=== PATIENT | female | born 1985 | race Caucasian/White ===

== ENCOUNTER 2022-09-09 20:31 | Emergency (ER) | payer BC, SELFPAY ==
[2022-09-09 20:40] VITALS: BP 145/78; PULSE 74; RESP 18; TEMP 36.8; O2SAT 99; BMI 41.1
--- NOTE | 2022-09-09 20:47 | ED.SKABFB ---
HPI - Skin/Abscess/Foreign Bdy General Chief complaint: Skin/Abscess/Foreign Body Stated complaint: abcess on right side of groin Time Seen by Provider: 09/09/22 20:38 History of Present Illness HPI narrative: Pt is a 36 year old woman who comes in with a labial abscess which has been present for the past 6 days. Pt was seen in Urgent Care and was cultured. Pt was started on Bactrim. Culture results not available. Pt has had no dysuria. No fevers or chills. No nausea or vomiting. Pt states the lestion which is on the right side has been draining puss. No other complaints. Pain is moderate and locatlised to the right side of the vagina. Related Data Home Medications Medication Instructions Recorded Confirmed omeprazole 40 mg capsule,delayed 40 mg PO DAILY 09/09/22 09/09/22 release sulfamethoxazole 800 1 tab PO BID 09/09/22 09/09/22 mg-trimethoprim 160 mg tablet Allergies Allergy/AdvReac Type Severity Reaction Status Date / Time albuterol AdvReac Mild Dizzy Verified 09/09/22 20:47 Review of Systems Status of ROS: Reports: 10 or more systems reviewed and unremarkable except as noted in History and below [facility] Medical History (Updated 09/09/22 @ 21:41 by Ted Singh MD) Anxiety ?F41.9 - Anxiety disorder, unspecified (ICD-10) Chronic GERD ?K21.9 - Gastro-esophageal reflux disease without esophagitis (ICD-10) Endometriosis ?N80.9 - Endometriosis, unspecified (ICD-10) Eosinophilic esophagitis ?K20.0 - Eosinophilic esophagitis (ICD-10) Idiopathic thrombocytopenic purpura (ITP) ?D69.3 - Immune thrombocytopenic purpura (ICD-10) Vertigo ?R42 - Dizziness and giddiness (ICD-10) Surgical History (Updated 09/09/22 @ 21:10 by Tobias Swift RN) History of appendectomy ?Z90.49 - Acquired absence of other specified parts of digestive tract (ICD-10) History of removal of ovarian cyst ?Z98.890 - Other specified postprocedural states (ICD-10) ?Z87.42 - Personal history of other diseases of the female genital tract (ICD-10) Social History Smoking Status: Never smoker Second hand tobacco smoke exposure: No How often do you have a drink containing alcohol: never How often do you have six or more drinks on one occasion: Never AUDIT-C Alcohol total score: 0 Non-prescribed substance use: denies use Exam Narrative: Exam Narrative: EXAM GENERAL: Patient appears comfortable and well. EYES: No scleral icterus. LYMPH: No supraclavicular or cervical lymphadenopathy. SKIN: Visible skin seen during exam normal or with benign process only. EXT: No dependent lower extremity pedal edema. HEART: Regular rate and rhythm with no murmurs, rubs, or gallops. LUNGS: Clear to auscultation bilaterally with no crackles or wheezes. ABD: Soft, non tender, non distended. PSYCH: Good eye contact, speech is not pressured. Const: Vital Signs, click to edit/add: Vital Signs - 24 hr 09/09/22 20:40 Temperature 98.2 F Pulse Rate [Right Pulse Oximeter] 74 Respiratory Rate 18 Blood Pressure [Ri ght Upper Arm] 145/78 H Pulse Oximetry 99 Oxygen Delivery Me thod Room Air Course Course Hospital Course: Pt seen and examined. Abscess is actually in the right groin lateral to the vagina. Exam performed with female nurse present. Ultrasound ordered. Reevaluation(s) Reevaluation #1: Ultrasound showed no fluid collection only swelling Time: 21:37 Vital Signs Vital signs: Initial Vital Signs Temperature 98.2 F 09/09/22 20:40 Temperature Source Temporal Artery Scan 09/09/22 20:40 Pulse Rate 74 09/09/22 20:40 Respiratory Rate 18 09/09/22 20:40 Blood Pressure 145/78 H 09/09/22 20:40 Blood Pressure Mean 100 09/09/22 20:40 Blood Pressure Position Sitting 09/09/22 20:40 Pulse Oximetry 99 09/09/22 20:40 Oxygen Delivery Method Room Air 09/09/22 20:40 Vital Signs Temperature 98.2 F 09/09/22 20:40 Pulse Rate 74 09/09/22 20:40 Respiratory Rate 18 09/09/22 20:40 Blood Pressure 145/78 H 09/09/22 20:40 Pulse Oximetry 99 09/09/22 20:40 Oxygen Delivery Method Room Air 09/09/22 20:40 Temperature 98.2 F 09/09/22 20:40 Pulse Rate 74 09/09/22 20:40 Respiratory Rate 18 09/09/22 20:40 Blood Pressure 145/78 H 09/09/22 20:40 Pulse Oximetry 99 09/09/22 20:40 Oxygen Delivery Method Room Air 09/09/22 20:40 MDM - Skin/Abscess/Foreign Bdy MDM Narrative Medical decision making narrative: Pt is a 36 year old woman who comes in with induration in the right groin. Pt had been seen by Urgent Care previously and cultured. Pt is on Bactrim. Ultrasound shows no drainable fluid. Pt shows no signs of systemic infection. Pt will continue Bactrim with symptomatic treatment and follow up with PCP in 2 days. Differential Diagnosis Differential diagnosis: Likely abscess of skin or subcutaneous tissue, cellulitis and contact dermatitis Discharge Plan Discharge Clinical Impression: Cellulitis Patient Disposition: Home, Self-Care Condition: Stable Instructions: Cellulitis (ED) Additional Instructions: Continue current treatment Follow up with PCP Monday Activity Level: No Restrictions Discharge Diet: Regular Prescriptions: No Action sulfamethoxazole-trimethoprim 800-160 mg tablet 1 tab PO BID omeprazole 40 mg capsule,delayed release(DR/EC) 40 mg PO DAILY Stand Alone Forms: [employer] Info Instructions
== END 2022-09-09 21:48 | disposition home or self-care (01) ==
PROVIDERS: Emergency Provider Internal Medicine; PCP Family Medicine
DX: L03.314 Cellulitis of groin (principal)
CPT/HCPCS: 99283

== ENCOUNTER 2023-02-17 07:25 | Emergency (ER) | payer BC, SELFPAY ==
[2023-02-17 07:32] VITALS: BP 161/101; PULSE 87; RESP 18; TEMP 36.3; O2SAT 98; BMI 39.5
--- NOTE | 2023-02-17 07:57 | ED.GENADULT ---
HPI - General Adult General Date Seen: 02/17/23 Chief complaint: Skin/Abscess/Foreign Body Stated complaint: rash Time Seen by Provider: 02/17/23 07:55 Source: patient Mode of arrival: ambulatory Limitations: no limitations Related Data Home Medications Medication Instructions Recorded Confirmed omeprazole 40 mg capsule,delayed 40 mg PO DAILY 09/09/22 02/17/23 release Previous Rx's Medication Instructions Recorded cephalexin 500 mg capsule 500 mg PO TID #15 caps 02/17/23 prednisone 50 mg tablet 50 mg PO DAILY #5 tabs 02/17/23 Allergies Allergy/AdvReac Type Severity Reaction Status Date / Time albuterol AdvReac Mild Dizzy Verified 09/09/22 20:47 PFSH PFS Medical History (Updated 02/17/23 @ 07:57 by Gutierrez Alberto MD) Vertigo ?R42 - Dizziness and giddiness (ICD-10) Idiopathic thrombocytopenic purpura (ITP) ?D69.3 - Immune thrombocytopenic purpura (ICD-10) Eosinophilic esophagitis ?K20.0 - Eosinophilic esophagitis (ICD-10) Endometriosis ?N80.9 - Endometriosis, unspecified (ICD-10) Anxiety ?F41.9 - Anxiety disorder, unspecified (ICD-10) Chronic GERD ?K21.9 - Gastro-esophageal reflux disease without esophagitis (ICD-10) Surgical History (Updated 09/09/22 @ 21:10 by Tobias Swift RN) History of removal of ovarian cyst ?Z98.890 - Other specified postprocedural states (ICD-10) ?Z87.42 - Personal history of other diseases of the female genital tract (ICD-10) History of appendectomy ?Z90.49 - Acquired absence of other specified parts of digestive tract (ICD-10) Social History Smoking Status: Never smoker Second hand tobacco smoke exposure: No How often do you have a drink containing alcohol: never How often do you have six or more drinks on one occasion: Never AUDIT-C Alcohol total score: 0 Non-prescribed substance use: denies use Exam Const: Vital Signs, click to edit/add: Vital Signs - 24 hr 02/17/23 07:32 Temperature 97.3 F L Pulse Rate [Pulse Oximeter] 87 Respiratory Rate 18 Blood Pressure [Ri ght Upper Arm] 161/101 H Pulse Oximetry 98 Oxygen Delivery Me thod Room Air Course Vital Signs Vital signs: Initial Vital Signs Temperature 97.3 F L 02/17/23 07:32 Temperature Source Temporal Artery Scan 02/17/23 07:32 Pulse Rate 87 02/17/23 07:32 Respiratory Rate 18 02/17/23 07:32 Blood Pressure 161/101 H 02/17/23 07:32 Blood Pressure Mean 121 H 02/17/23 07:32 Blood Pressure Position Sitting 02/17/23 07:32 Pulse Oximetry 98 02/17/23 07:32 Oxygen Delivery Method Room Air 02/17/23 07:32 Vital Signs Temperature 97.3 F L 02/17/23 07:32 Pulse Rate 87 02/17/23 07:32 Respiratory Rate 18 02/17/23 07:32 Blood Pressure 161/101 H 02/17/23 07:32 Pulse Oximetry 98 02/17/23 07:32 Oxygen Delivery Method Room Air 02/17/23 07:32 Temperature 97.3 F L 02/17/23 07:32 Pulse Rate 87 02/17/23 07:32 Respiratory Rate 18 02/17/23 07:32 Blood Pressure 161/101 H 02/17/23 07:32 Pulse Oximetry 98 02/17/23 07:32 Oxygen Delivery Method Room Air 02/17/23 07:32 Discharge Plan Discharge Clinical Impression: Insect bite of eyebrow with local reaction Patient Disposition: Home, Self-Care Condition: Stable Additional Instructions: Benadryl 50 mg daily for five days. Keflex 500 mg t.i.d. x5 days. Benadryl as needed. Ice. Follow-up if worsening or not improving. Prescriptions: New prednisone 50 mg tablet 50 mg PO DAILY Qty: 5 0RF cephalexin 500 mg capsule 500 mg PO TID Qty: 15 0RF No Action omeprazole 40 mg capsule,delayed release(DR/EC) 40 mg PO DAILY Follow Up/Referrals: Emilie Danielson MD [Staff Physician] - Stand Alone Forms: [facility] Info Instructions
--- NOTE | 2023-04-07 06:30 | ED.SKABFB ---
HPI - Skin/Abscess/Foreign Bdy General Date Seen: 04/07/23 Chief complaint: Skin/Abscess/Foreign Body Stated complaint: rash Time Seen by Provider: 02/17/23 07:55 Source: patient Mode of arrival: ambulatory Limitations: no limitations History of Present Illness HPI narrative: 37-year-old female with insect bite above her right eye that is now causing swelling and redness down into her right cheek. No fevers or chills. No lip or tongue swelling. She still able open and close her eye. No purulent drainage from the eye. Related Data Home Medications Medication Instructions Recorded Confirmed omeprazole 40 mg capsule,delayed 40 mg PO DAILY 09/09/22 02/17/23 release Previous Rx's Medication Instructions Recorded cephalexin 500 mg capsule 500 mg PO TID #15 caps 02/17/23 prednisone 50 mg tablet 50 mg PO DAILY #5 tabs 02/17/23 Allergies Allergy/AdvReac Type Severity Reaction Status Date / Time albuterol AdvReac Mild Dizzy Verified 09/09/22 20:47 Review of Systems Narrative: Review of systems is outlined above otherwise noted to be negative. PFSH PFSH Medical History (Updated 03/04/23 @ 00:00 by Coleen Izaguirre) Vertigo ?R42 - Dizziness and giddiness (ICD-10) Idiopathic thrombocytopenic purpura (ITP) ?D69.3 - Immune thrombocytopenic purpura (ICD-10) Eosinophilic esophagitis ?K20.0 - Eosinophilic esophagitis (ICD-10) Endometriosis ?N80.9 - Endometriosis, unspecified (ICD-10) Anxiety ?F41.9 - Anxiety disorder, unspecified (ICD-10) Chronic GERD ?K21.9 - Gastro-esophageal reflux disease without esophagitis (ICD-10) Surgical History (Updated 09/09/22 @ 21:10 by Tobias Swift RN) History of removal of ovarian cyst ?Z98.890 - Other specified postprocedural states (ICD-10) ?Z87.42 - Personal history of other diseases of the female genital tract (ICD-10) History of appendectomy ?Z90.49 - Acquired absence of other specified parts of digestive tract (ICD-10) Social History Smoking Status: Never smoker Second hand tobacco smoke exposure: No How often do you have a drink containing alcohol: never How often do you have six or more drinks on one occasion: Never AUDIT-C Alcohol total score: 0 Non-prescribed substance use: denies use Exam Narrative: Exam Narrative: Vitals noted. HEENT: Conjunctiva clear. Tympanic membranes are pearly white bilaterally. Posterior pharynx is clear without erythema or exudate. Neck is supple without adenopathy. Lungs: Clear to auscultation in all contreras. No wheezes, rales, rhonchi. Heart: Regular rate and rhythm without murmur. Skin: No abnormalities noted of the exposed skin. There is some redness and swelling below the eye. No induration. Neurologic: Awake, alert, fully oriented. Neurologic exam is nonfocal. Course Course ED Course: Patient seen and examined. She is having a local reaction to the staying. We will cover with an antibiotic just in case there is a secondary bacterial infection. Primary treatment with Benadryl and prednisone. Vital Signs Vital signs: Initial Vital Signs Temperature 97.3 F L 02/17/23 07:32 Temperature Source Temporal Artery Scan 02/17/23 07:32 Pulse Rate 87 02/17/23 07:32 Respiratory Rate 18 02/17/23 07:32 Blood Pressure 161/101 H 02/17/23 07:32 Blood Pressure Mean 121 H 02/17/23 07:32 Blood Pressure Position Sitting 02/17/23 07:32 Pulse Oximetry 98 02/17/23 07:32 Oxygen Delivery Method Room Air 02/17/23 07:32 Vital Signs Temperature 97.3 F L 02/17/23 07:32 Pulse Rate 87 02/17/23 07:32 Respiratory Rate 18 02/17/23 07:32 Blood Pressure 161/101 H 02/17/23 07:32 Pulse Oximetry 98 02/17/23 07:32 Oxygen Delivery Method Room Air 02/17/23 07:32 Temperature 97.3 F L 02/17/23 07:32 Pulse Rate 87 02/17/23 07:32 Respiratory Rate 18 02/17/23 07:32 Blood Pressure 161/101 H 02/17/23 07:32 Pulse Oximetry 98 02/17/23 07:32 Oxygen Delivery Method Room Air 02/17/23 07:32 Discharge Plan Discharge Clinical Impression: Insect bite of eyebrow with local reaction Patient Disposition: Home, Self-Care Condition: Stable Additional Instructions: Benadryl 50 mg daily for five days. Keflex 500 mg t.i.d. x5 days. Benadryl as needed. Ice. Follow-up if worsening or not improving. Prescriptions: New prednisone 50 mg tablet 50 mg PO DAILY Qty: 5 0RF cephalexin 500 mg capsule 500 mg PO TID Qty: 15 0RF No Action omeprazole 40 mg capsule,delayed release(DR/EC) 40 mg PO DAILY Follow Up/Referrals: Emilie Danielson MD [Staff Physician] - Stand Alone Forms: [employer] Info Instructions
== END 2023-02-17 08:12 | disposition home or self-care (01) ==
LOC: ED 08:07
PROVIDERS: Emergency Provider Family Medicine
DX: T63.481A Toxic effect of venom of other arthropod, accidental (unintentional), initial encounter (principal)
CPT/HCPCS: 99281; 99282; 99283

== ENCOUNTER 2023-07-22 14:50 | Emergency (ER) | payer BC, SELFPAY ==
[2023-07-22] VITALS (16 sets, daily range): BP systolic 160–191; BP diastolic 90–111; PULSE 73–90; RESP 16; TEMP 37.1–37.9; O2SAT 95–100; BMI 40.3
--- NOTE | 2023-07-22 15:18 | ED_ITS ---
HPI - General Adult General Date Seen: 07/22/23 Chief complaint: Headache/Migraine Stated complaint: Migraine, vomiting Time Seen by Provider: 07/22/23 15:03 History of Present Illness HPI narrative: 37 yo F with h/o ITP, vertigo, eosinophilic esophagitis, endometreosis, GERD, and also frequent cervicogenic and tension-type headaches. She presents to the ER today with her for evaluation of headache that began this morning. She recalls that she has had a lot of stress and pain in her neck lately at work. She actually saw her chiropractor earlier this week on Monday and had a manipulation with improvement. Headaches were doing better for the past few days. She woke up this morning she had some stiffness and pain affecting both sides on the back of her neck. No other symptoms. Later on this morning the pain was radiating up into her head and now giving her a throbbing headache behind both temples. The headache is associated with photophobia, nausea, and and a couple of episodes of nonbilious, nonbloody vomiting. No other symptoms. No confusion. No blurry vision. No focal numbness or tingling. No slurred speech. She has not had any recent head trauma. No known exposure to carbon monoxide her is with her and is not having any symptoms. She does have a history migraines and this headache feels similar in location to her previous migraines. She does not recall that the other migraines were associated with neck pain at the onset. She was noted to have a temp 100.2? at triage but has not had any fever or chills at home. She now feels a bit flushed. No other infectious type symptoms such as cough, stuffy nose, sore throat. No urinary trouble. Related Data Home Medications Medication Instructions Recorded Confirmed omeprazole 40 mg capsule,delayed 40 mg PO DAILY 09/09/22 02/17/23 release Previous Rx's Medication Instructions Recorded cephalexin 500 mg capsule 500 mg PO TID #15 caps 02/17/23 prednisone 50 mg tablet 50 mg PO DAILY #5 tabs 02/17/23 Allergies Allergy/AdvReac Type Severity Reaction Status Date / Time albuterol AdvReac Mild Dizzy Verified 07/22/23 15:14 [facility] Medical History (Updated 07/22/23 @ 18:18 by Brooks Santos MD) Vertigo ?R42 - Dizziness and giddiness (ICD-10) Idiopathic thrombocytopenic purpura (ITP) ?D69.3 - Immune thrombocytopenic purpura (ICD-10) Eosinophilic esophagitis ?K20.0 - Eosinophilic esophagitis (ICD-10) Endometriosis ?N80.9 - Endometriosis, unspecified (ICD-10) Anxiety ?F41.9 - Anxiety disorder, unspecified (ICD-10) Chronic GERD ?K21.9 - Gastro-esophageal reflux disease without esophagitis (ICD-10) Surgical History (Updated 09/09/22 @ 21:10 by Tobias Swift RN) History of removal of ovarian cyst ?Z98.890 - Other specified postprocedural states (ICD-10) ?Z87.42 - Personal history of other diseases of the female genital tract (ICD-10) History of appendectomy ?Z90.49 - Acquired absence of other specified parts of digestive tract (ICD- 10) Social History Smoking Status: Never smoker Second hand tobacco smoke exposure: No How often do you have a drink containing alcohol: never How often do you have six or more drinks on one occasion: Never AUDIT-C Alcohol total score: 0 Non-prescribed substance use: denies use Exam Narrative: Exam Narrative: Constitutional: Appears well-developed and well-nourished. Alert. Conversant. Uncomfortable and photophobic. Prefers to have the lights off, but overall is conversant and Non toxic. HENT: Head: Atraumatic. No depressed skull fracture, Raccoon Eyes, Mccarty's sign, or hemotympanum. Face normal. TMs normal. Has placed a a cold washcloth on her forehead Nose: Nose normal. Mouth/Throat: Oral mucosa is clear and moist. no trismus. Pharynx normal. Tonsils symmetric. No tonsillar enlargement, erythema, or exudate. Eyes: Conjunctivae normal. EOM normal. Pupils equal, round, and reactive to light. No scleral icterus. Neck: Normal range of motion. Neck supple. No tracheal deviation present. Cardiovascular: Normal rate, regular rhythm. No gallop. No friction rub. No murmur heard. Symmetric radial artery pulses Pulmonary/Chest: Effort normal. No stridor. No respiratory distress. No wheezes. No rales. No rhonchi . No tenderness. Abdominal: Soft. No distension. No mass. No tenderness. No rebound. No guarding. Musculoskeletal: RUE: Normal range of motion. No tenderness. No deformity LUE: Normal range of motion. No tenderness. No deformity RLE: Normal range of motion. No edema. No tenderness. No deformity LLE: Normal range of motion. No edema. No tenderness. No deformity Lymph: No cervical adenopathy. Neurological: Mental status normal. Attention normal. Alert and oriented x3. GCS 15. Memory normal. Speech fluent. Cognition normal. Cranial Nerves intact II-XII except I did not formally test gag or visual acuity. EOMI. Palate elevates symmetrically and tongue protrudes in the midline. Strength: 5/5 trapezius on the right and left 5/5 deltoid on the right and left 5/5 biceps on the right and left 5/5 triceps on the right and left 5/5 winter intern on the right and left 5/5 thumb opposition on the right and le ft 5/5 finger abduction on the right and le ft 5/5 hip flexors (L3) on the right and le ft 5/5 quadriceps (L4) on the right and lef t 5/5 tibialis anterior on the right and l eft 5/5 EHL (L5) on the right and left 5/5 gastrocnemius (S1) on the right and left 5/5 hamstring on the right and left Sensation intact to light touch in both upper extremities (C4-T1) Sensation intact to light touch in Both lower extremities (L4-S1). Finger to nose and coordination normal. Skin: Skin is warm and dry. No rash noted. No pallor. Normal capillary refill. Psychiatric: Normal mood. Normal affect. Const: Vital Signs, click to edit/add: Vital Signs - 24 hr 07/22/23 15:07 07/22/23 15:17 07/22/23 15:30 Temperature 100.2 F H Pulse Rate 88 83 Pulse Rate [Pulse Oximeter] 90 Respiratory Rate 16 Blood Pressure Blood Pressure [Ri ght Upper Arm] 189/111 H Pulse Oximetry 95 100 99 Oxygen Delivery Me thod Room Air 07/22/23 15:32 07/22/23 15:45 07/22/23 16:38 Temperature Pulse Rate 80 78 82 Pulse Rate [Pulse Oximeter] Respiratory Rate Blood Pressure 181/108 H Blood Pressure [Ri ght Upper Arm] Pulse Oximetry 100 100 99 Oxygen Delivery Me thod 07/22/23 16:45 07/22/23 17:00 07/22/23 17:15 Temperature Pulse Rate 77 73 84 Pulse Rate [Pulse Oximeter] Respiratory Rate Blood Pressure Blood Pressure [Ri ght Upper Arm] Pulse Oximetry 98 96 100 Oxygen Delivery Me thod 07/22/23 17:30 07/22/23 17:45 07/22/23 17:48 Temperature Pulse Rate 77 86 86 Pulse Rate [Pulse Oximeter] Respiratory Rate Blood Pressure 191/111 H Blood Pressure [Ri ght Upper Arm] Pulse Oximetry 100 99 100 Oxygen Delivery Ny thod 07/22/23 17:49 07/22/23 18:00 07/22/23 18:15 Temperature 98.7 F Pulse Rate 88 87 Pulse Rate [Pulse Oximeter] Respiratory Rate Blood Pressure Blood Pressure [Ri ght Upper Arm] Pulse Oximetry 100 100 Oxygen Delivery Me thod 07/22/23 18:32 Temperature Pulse Rate Pulse Rate [Pulse Oximeter] Respiratory Rate Blood Pressure Blood Pressure [Ri ght Upper Arm] 160/90 H Pulse Oximetry Oxygen Delivery Me thod Course Course ED Course: Recheck-labs reassuring. White count normal. Headache down to 10/22/2009 but just got her meds. Reevaluation(s) Reevaluation #1: Recheck-headache improving down to maybe 10/26. Reevaluation #2: Recheck-headache improving. Able turn the lights on now. Much more conversant. Feeling better. Blood pressure still elevated. I had the nurses recheck it because the automatic cuff was reading 190 systolic. A nurse recheck it was 160/100. Temperature down to normal, however that is not entire reassuring to me because she received Toradol which would be an antipyretic. Clinically, she looks good, headache is improving, neck is not stiff, and mental status is normal.. Vital Signs Vital signs: Initial Vital Signs Temperature 100.2 F H 07/22/23 15:07 Temperature Source Temporal Artery Scan 07/22/23 15:07 Pulse Rate 90 07/22/23 15:07 Respiratory Rate 16 07/22/23 15:07 Blood Pressure 189/111 H 07/22/23 15:07 Blood Pressure Mean 137 H 07/22/23 15:07 Blood Pressure Position Sitting 07/22/23 15:07 Pulse Oximetry 95 07/22/23 15:07 Oxygen Delivery Method Room Air 07/22/23 15:07 Vital Signs Temperature 100.2 F H 07/22/23 15:07 Pulse Rate 90 07/22/23 15:07 Respiratory Rate 16 07/22/23 15:07 Blood Pressure 189/111 H 07/22/23 15:07 Pulse Oximetry 95 07/22/23 15:07 Oxygen Delivery Method Room Air 07/22/23 15:07 Temperature 98.7 F 07/22/23 17:49 Pulse Rate 87 07/22/23 18:15 Respiratory Rate 16 07/22/23 15:07 Blood Pressure 160/90 H 07/22/23 18:32 Pulse Oximetry 100 07/22/23 18:15 Oxygen Delivery Method Room Air 07/22/23 15:07 Medications Administered Medications: Discontinued Medications Generic Name Dose Route Start Last Admin Trade Name Freq PRN Reason Stop Dose Admin Diphenhydramine HCl 12.5 mg 07/22/23 15:35 07/22/23 16:20 Diphenhydramine 50 Mg/Ml Inj IVP 07/22/23 15:36 12.5 mg ONCE ONE Administration Sodium Chloride 1,000 mls @ 1,000 mls/hr 07/22/23 15:45 07/22/23 17:32 0.9 % Sodium Chloride 1000 Ml IV 07/22/23 16:44 Infused .Q1H JOVANA Infusion Ketorolac Tromethamine 15 mg 07/22/23 15:35 07/22/23 16:21 Ketorolac 15 Mg/Ml Inj IVP 07/22/23 15:36 15 mg ONCE ONE Administration Metoclopramide HCl 10 mg 07/22/23 15:35 07/22/23 16:22 Metoclopramide Hcl 5 Mg/Ml Inj IVP 07/22/23 15:36 10 mg ONCE ONE Administration Medical Decision Making MDM Narrative Medical decision making narrative: Ths patient presents with a headache. A broad differential diagnosis was considered including tension, migraine, analgesic rebound, occipital neuralgia, etc. she does have a history of migraines when she was younger and she feels in many ways that today's headache is reminiscent of those migraines. Other less common but serious causes considered included meningitis, encephalitis, subarachnoid bleed, stroke, tumor, etc. in particular differential would include meningitis since she had a temperature of 100.2? and her headache is associated with some neck pain (but no stiffness).. Differential for fever include viral infections. Influenza and COVID swab is negative. Labs and white count are reassuring. Discussed with the patient and her that the only way to definitively rule out meningitis would be lumbar puncture. At this point though given clinically improvement, the patient and I agree that the risk in discomfort of LP would outweigh the on likely benefit of detecting bacterial meningitis. However, return precautions reviewed. Differential would also include neck pathology such as vertebral dissection since she had has been having a lot of neck pain lately and recently underwent chiropractic manipulation (5 days ago on Monday). No other focal deficits or vertigo to suggest acute stroke from vertebral dissection. Using 6 shared decision making we decided to hold off on CT imaging or CTA for now. Headache was not abrupt in onset so unlikely to represent aneurysmal subarachnoid hemorrhage. Please initial blood pressure was elevated. Suspect this was probably pain response. At this point no evidence for hypertensive encephalopathy , stroke, or other acute hypertensive emergency. Patients questions were answered and they feel improved after above interventions in ED. Supportive outpatient management is therefore indicated. Headache precautions given for home. If she needs to return to the ER would pursue advanced imaging with CT and CTA and/or lumbar puncture if still febrile. Lab Data Labs: Lab Results 07/22/23 07/22/23 Range/Units 16:06 16:40 WBC 7.80 (4.50-11.00) K/uL RBC 4.97 (4.00-5.20) m/uL Hgb 14.1 (12.0-16.0) gm/dL Hct 41.5 (33.0-51.0) % MCV 84 (80-100) fL MCH 28 (26-34) pg MCHC 34 (32-36) gm/dL RDW Coeff of Aric 12.4 (11.5-15.5) % Plt Count 261 (140-440) K/uL Neut % (Auto) 65.8 (42.0-72.0) % Lymph % (Auto) 27.6 (20-44) % [place] % (Auto) 4.9 (0.0-11.0) % Eos % (Auto) 1.2 (0.0-7.0) % Baso % (Auto) 0.1 (0.0-3.0) % Neut # (Auto) 5.14 (1.7-7.0) K/uL Lymph # (Auto) 2.15 (0.90-2.90) K/uL [place] # (Auto) 0.40 (0.00-0.90) K/UL Eos # (Auto) 0.09 (0.00-0.50) K/uL Baso # (Auto) 0.01 (0.00-0.30) K/uL Abs Immat Gran (auto) 0.03 (0.00-0.30) K/uL Imm/Tot Granulo (auto) 0.4 % Sodium 139 (135-149) mmol/L Potassium 3.9 (3.6-5.1) mmol/L Chloride 106 (96-114) mmol/L Carbon Dioxide 22 (20-32) mmol/L Anion Gap 11 (7-15) mEq/L BUN 12 (5-24) mg/dL Creatinine 0.5 (0.5-1.5) mg/dL Estimated Creat Clear 155.40 Estimated GFR 124 ml/min Glucose 90 (60-115) mg/dL Calcium 9.4 (8.4-10.6) mg/dL HCG, Qual Negative (Negative) SARS-CoV-2 (PCR) Negative SARS-CoV-2 (Negative) Influenza Type A (PCR) Negative PCR FLU A (Negative) Influenza Type B (PCR) Negative PCR FLU B (Negative) RSV (PCR) Negative PCR RSV (Negative) Discharge Plan Discharge Clinical Impression: Headache Patient Disposition: Home, Self-Care Condition: Stable Instructions: Acute Headache (DC) Additional Instructions: As we discussed, please return to the ER right away if you have any worsening headache, confusion, vomiting, worsening neck pain or stiffness, or if you developed another fever. If your headache is not completely improved within 24 hours, please return to the ER or see your doctor for a recheck Prescriptions: No Action omeprazole 40 mg capsule,delayed release(DR/EC) 40 mg PO DAILY prednisone 50 mg tablet 50 mg PO DAILY Qty: 5 0RF cephalexin 500 mg capsule 500 mg PO TID Qty: 15 0RF Follow Up/Referrals: Provider,Not a Local [Referring] - Stand Alone Forms: [employer] Info Instructions
[2023-07-22 16:11] LABS: Basophils Absolute Auto 0.01 K/uL (0.00-0.30); Basophils Percent Auto 0.1 % (0.0-3.0); Eosinophils Absolute Auto 0.09 K/uL (0.00-0.50); Eosinophils Percent Auto 1.2 % (0.0-7.0); Hematocrit 41.5 % (33.0-51.0); Hemoglobin* 14.1 gm/dL (12.0-16.0); Immature Granulocytes Abs Auto 0.03 K/uL (0.00-0.30); Immature Granulocytes Pct Auto 0.4 %; Lymphocytes Absolute Auto 2.15 K/uL (0.90-2.90); Lymphocytes Percent Auto 27.6 % (20-44); Mean Corpuscular HGB Conc 34 gm/dL (32-36); Mean Corpuscular Hemoglobin 28 pg (26-34); Mean Corpuscular Volume 84 fL (80-100); Monocytes Percent Auto 4.9 % (0.0-11.0); Neutrophils Absolute Auto 5.14 K/uL (1.7-7.0); Neutrophils Percent Auto 65.8 % (42.0-72.0); Platelet Count* 261 K/uL (140-440); RDW Coefficient of Variation % 12.4 % (11.5-15.5); Red Blood Count 4.97 m/uL (4.00-5.20)
[2023-07-22] MEDS: 0.9 % SODIUM CHLORIDE 1000 ml 1,000 ML IV (16:16)
[2023-07-22 16:19] LABS: Slide Review Reflex No
[2023-07-22] MEDS: diphenhydrAMINE 50 MG/ML inj 12.5 MG IVP (16:20)
[2023-07-22] MEDS: KETOROLAC 15 MG/ML inj IVP (16:21)
[2023-07-22] MEDS: METOCLOPRAMIDE HCL 5 MG/ML INJ 10 MG IVP (16:22)
[2023-07-22 16:25] LABS: Chloride* 106 mmol/L (96-114); Sodium* 139 mmol/L (135-149)
--- OUTSIDE RECORDS SUMMARY | 2023-07-22 16:25 | XMS_ITS | Clinical Summary ---
Author Name Unknown Organization [facility] Address [place], [place] [address] Care Team Providers Care Garment Sewing Machine Operator Name Role Phone Miguel Angel Olson MD Primary Care Provider U eriailbriana Allergies Active Allergy Reactions Criticality Noted Date Comments Albuterol Arrhythmia,Headache 10/14/2013 Milk Cough 02/13/2014 Medications Medication Sig Dispensed Refills Start Date End Date Status Biotin 1 mg tablet Take by mouth. 0 02/13/2014 Ac tive calcium-vitamin D3-vitamin K, 500 mg-100 units-40 mcg, (VIACTIV) chewable Take 1 tablet by mouth once daily. 0 02/13/2014 Active multivitamins-calcium -iron-minerals (WOMEN'S DAILY MULTIVITAMIN) 18-0.4 mg tab tablet Take 1 tablet by mouth once daily. 0 01/19/2015 Active glucosamine-chondroit in, 500-400 mg, (COSAMIN DS 500/400) 500-400 mg cap Take 1 capsule by mouth 3 times daily. 0 05/02/2015 Active Lactobacillus acidophilus (Probiotic) 10 billion cell cap Take by mouth. 0 12/10/2021 Acti ve omeprazole (PRILOSEC) 40 mg Delayed-Release capsuleIndications:Eo sinophilic esophagitis Take 1 Capsule (40 mg) by mouth once daily. Take 30-60 minutes before a meal/food once a day. 90 Capsule 3 01/03/2022 Active ascorbic acid CR (VITAMIN C) 500 mg Extended-Release tablet 0 Active Active Problems Problem Noted Date Diagnosed Date Pap smear for cervical cancer screening 12/18/19 Overview: 12/2021: NIL/HPV neg. Plan: Pap and HPV in 5 years. Eosinophilic esophagitis 09/08/2021 Overview: EGD 08/2021 1 cm HH, mild eosinophilic esophagitis, try omeprazole Vertigo 10/04/2019 Obesity, Class II, BMI 35-39.9 04/11/2017 Anxiety state, unspecified 12/14/2010 Family history of hemochromatosis 12/02/2008 Overview: Dad Endometriosis of pelvis 11/11/2008 Overview: Dx 2000 Physiological ovarian cysts 11/11/2008 Idiopathic thrombocytopenic purpura (ITP) 2008 Overview: 2001 Resolved Problems Problem Noted Date Diagnosed Date Resolved Date Idiopathic thrombocytopenic purpura (ITP) 11/11/2008 08/09/2011 Overview: Dx 2001 Immunizations Name Administration Dates Next Due COVID-19 vaccine (Chantelle-J&J) PF, MDV Covid-19 Vaccine (Novavax) Pf, MDV 05/07/2022 DTP 08/18/1987, 7,05/19/1986,02/17 Hepatitis B (Adult) 03/06/2006, 6,09/26/2005,07/20 Hepatitis B (Peds) 01/17/2006,08/17/2005 Inactivated Polio Vaccine 09/17/1997 Influenza Virus, Unspecified 03/29/2019 Influenza, IIV3 (Age >=3 years) 03/19/2017,03/19 Influenza, IIV4 06/13/2022,05/02/2015 Influenza, IIV4 (=>6mos) MDV 03/29/2020,04/01/20 19 MMR 01/17/1991,03/19/1987 Meningococcal Vaccine (Menomune) 11/17/2005,09/17 Oral Polio Vaccine 08/18/1987, 7,06/19/1986,02/17 Td (Age >=7 Years) 11/17/2005,03/19/1997 Td, Preservative Free (age >= 7 Years) 7 Tdap 03/06/2006 Family History Medical History Relation Name Comments Good Health Brother 2 younger broth ers Coronary artery disease Father sten t x1 Other Father hemochromatosis b 1962 Cancer-colon Maternal Aunt Psychiatric illness Maternal Grandfather dementia - pancreatic CA Cancer Maternal Grandmother ovarian Good Health Mother b 1961 Hyperlipidemia Other 1 dad's side - all of the paternal great uncles had premature CADz Diabetes Other 2 MGGM Heart Disease Paternal Grandfather o f MS at 69 Relation Name Status Comments Brother Father Maternal Aunt Maternal Grandfather Maternal Grandmother Mother Other 1 Other 2 Paternal Grandfather Social History Tobacco Use Types Packs/Day Years Used Date Smoking Tobacco: Never Smokeless Tobacco: Never Tobacco Cessation:Counseling Given: Yes Alcohol Use Standard Drinks/Week Comments Yes 0.8 (1 standard drink = 0.6 oz p ure alcohol) PHQ-2 Answer Date Recorded PHQ-2 TOTAL SCORE 0 10/04/2019 Social Connections Answer Date Recorded Frequency of Communication with Friends and Fami ly 0 09/07/2022 Financial Resource Strain Answer Date R ecorded Difficulty of Paying Living Expenses 3 09/07/2022 Difficulty of Paying Living Expenses Not on file 09/07/2022 Food Insecurity Answer Date Recorded Worried About Running Out of Food in the Last Ye ar 1 09/07/2022 Transportation Needs Answer Date Record ed Lack of Transportation (Medical) 1 09/07/2022 Housing Stability Answer Date Recorded Unable to Pay for Housing in the Last Year 1 09/07/2022 Sex and Gender Information Value Date Recorded Sex Assigned at Not on file Gender Identity Not on file Sexual Orientation Not on file Obstetrics History Para Term AB IAB SAB Ectopic Multiple Livin g Live Births 0 0 0 0 0 0 0 0 0 0 Last Filed Vital Signs Vital Sign Reading Time Taken Comments Blood Pressure 149/99 09/12/2022 2:53 PM CDT Pulse 90 09/12/2022 2:50 PM CDT Temperature 37.2 ??C (98.9 ??F) 09/07/2022 2:12 PM CD T Respiratory Rate 18 09/07/2022 2:12 PM CDT Oxygen Saturation 98% 09/12/2022 2:50 PM CDT Inhaled Oxygen Concentration - - Weight 123.8 kg (273 lb) 09/12/2022 2:50 PM CDT Height 174 cm (5' 8.5) 01/03/2022 8:10 AM CDT Body Mass Index 40.9 01/03/2022 8:10 AM CDT Plan of Treatment Health Maintenance Due Date Last Done Comments HIV for age 15-65 2000 Depression screening for age 12+ 10/03/2020 10/04/2019, 09/10/2018, 01/27/2017, Additional history exists BMI (ht and wt on same day) for age 18+ 01/03/2023 01/03/2022, 09/10/2018, 09/07/2017, Additional history exists COVID-19 vaccine series ( season) 2023 05/07/2022, 04/10/2021 Influenza for age 9-49 02/17/2023 2, 03/29/2020, 04/01/2019, Additional history exists Tetanus booster 08/29/2026 08/29/2016, 02/17, 11/17/2005, Additional history exists Pap test for age 21-65 01/03/2027 2, 01/03/2022, 08/29/2016, Additional history exists Tdap Completed 03/06/2006 Hepatitis C screening for age 18-79 Completed 01/03/2022 Pneumococcal series for age 6-64 Aged Out No longer eligible based on patient's age to complete this topic Care Teams Garment Sewing Machine Operator Relationship Specialty Start Date End Date Miguel Angel Olson MD PCP - General 11/04/08
[2023-07-22 16:28] LABS: Anion Gap 11 mEq/L (7-15); Blood Urea Nitrogen* 12 mg/dL (5-24); Calcium* 9.4 mg/dL (8.4-10.6); Carbon Dioxide* 22 mmol/L (20-32); Creatinine* 0.5 mg/dL (0.5-1.5); Estimated Glomerular Filt Rate 124 ml/min; Glucose* 90 mg/dL (60-115)
[2023-07-22 16:38] LABS: Potassium* 3.9 mmol/L (3.6-5.1)
[2023-07-22 16:40] LABS: HCG Qualitative Serum* Negative (Negative)
[2023-07-22 17:20] LABS: PCR FLU A Negative PCR FLU A (Negative); PCR FLU B Negative PCR FLU B (Negative); PCR RSV Negative PCR RSV (Negative); SARS PCR* Negative SARS-CoV-2 (Negative)
== END 2023-07-22 18:33 | disposition home or self-care (01) ==
LOC: ED 16:23
PROVIDERS: Emergency Provider Emergency Medicine; PCP Family Medicine
DX: R51.9 Headache, unspecified (principal)
CPT/HCPCS: 36415; 80048; 84703; 85025; 87631; 96374; 96375; 99283; 99284; J1200; J1885; J2765; J7030